=== PATIENT | female | born 1985 | race Hispanic/Latino ===

== ENCOUNTER → 2025-01-24 | Day surgery (SDC) | payer BC ==
[~2025-01-24] MED LIST: ACETAMINOPHEN 1000 MG/100 ML 100 ML IV ONE; DEXAMETHASONE SOD PHOS INJ 4 MG/ML SDV ONE; DEXMEDETOMIDINE HCL 2 ML ONE; FAMOTIDINE 20 MG/2 ML VIAL IV ONE; FENTANYL CITRATE/PF 100MCG/2 ML INJ ONE; LIDOCAINE HCL 2% LOCAL INJ 5 ML SDV VIAL INJ ONE; METOCLOPRAMIDE HCL 10 MG/2ML VIAL ONE; MIDAZOLAM HCL 2 MG/2 ML VIAL ONE; ONDANSETRON HCL INJ 2MG/ML 2ML 2 MG/ML VIAL ONE; PROPOFOL IV EMULSION 10 MG/ML 20 ML VIAL ONE; ROCURONIUM BROMIDE 1 ML IV ONE; SEVOFLURANE INHAL SOLN 250 ML PEN BTL ONE; SODIUM CHLORIDE 0.9% 100 ML ONE; SUCCINYLCHOLINE CHLORIDE 20 MG/ML 10ML VIAL ONE
[2025-01-24] MEDS: LACTATED RINGER'S 1,000 ML ONE (10:25)
[2025-01-24 13:16] VITALS: TEMP 99.2
[2025-01-24 15:50] VITALS: BP 140/85; PULSE 69; RESP 16; O2SAT 97
== END | disposition home or self-care (01) ==
LOC: OR 07:21
PROVIDERS: ATTEND Otolaryngology Otolaryngology/Facial Plastic Surgery
DX: D11.0 Benign neoplasm of parotid gland (principal); E66.01 Morbid (severe) obesity due to excess calories; Z85.6 Personal history of leukemia
CPT/HCPCS: 42420; 88307; J0131; J0330; J1100; J1308; J2003; J2250; J2405; J2704; J2765; J3010; J7050; J7121; 88304